=== PATIENT | male | born 1980 | race Asian ===

== ENCOUNTER 2019-04-13 23:33 | Emergency (ER) | payer SELFPAY ==
[2019-04-13 23:51] VITALS: BP 132/84
[2019-04-14] MEDS ORDERED: TORADOL IM ONE (01:54)
[2019-04-14] MEDS ORDERED: FLEXERIL PO ONE (01:54)
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
== END 2019-04-14 02:26 | disposition home or self-care (01) ==
LOC: ED 23:33
DX: R51 Headache (principal); F17.200 Nicotine dependence, unspecified, uncomplicated; V47.5XXA Car driver injured in collision with fixed or stationary object in traffic accident, initial encounter; Y93.89 Activity, other specified; Y92.410 Unspecified street and highway as the place of occurrence of the external cause; Y99.8 Other external cause status
CPT/HCPCS: 96372; 99282; J1885